=== PATIENT | male | born 1975 | race Caucasian/White ===

== ENCOUNTER 2018-02-05 14:20 | Outpatient (REF) | payer SELFPAY ==
[2018-02-05 19:52] LABS: ALT 38 U/L (12-78); AST 21 U/L (15-37); Albumin 4.2 g/dL (3.4-5.0); Alkaline Phosphatase 86 U/L (46-116); Anion Gap 8.4 mmol/L (3-11); BUN 12 mg/dL (7-18); Bilirubin, Total 0.6 mg/dL (0.2-1.0); CO2 28.6 mmol/L (21.0-32.0); CREATININE 0.97 mg/dL (0.70-1.30); Calcium 9.2 mg/dL (8.5-10.1); Chloride 100 mmol/L (98-107); Cholesterol 282 mg/dL (50-200); Glucose 110 mg/dL (70-100); HDL Cholesterol 51 mg/dL (40-60); LDL CHOLESTEROL 166 mg/dL (<100); Potassium 4.1 mmol/L (3.5-5.1); Sodium 137 mmol/L (136-145); TSH 1.94 uIU/mL (0.358-3.74); Total Protein 7.4 g/dL (6.4-8.2); Triglyceride 466 mg/dL (30-150)
[2018-02-05 19:59] LABS: COMMENT (LAB VIEW ONLY) 135.74 mg/dL
[2018-02-05 20:32] LABS: HCT 49.4 % (40.0-50.0); Mean Corp. HGB Concentration 34.4 g/dL (32.0-36.0); Mean Corpuscular Hemoglobin 30.3 pg (27.0-33.0); Mean Corpuscular Volume 88.1 fL (80-95); Mean Platelet Volume 10.1 fL (8.0-11.0); Platelet Count 231 x1000/uL (130-400); RBC 5.61 m/cumm (4.50-6.00); RBC Distribution Width 12.5 % (11.8-14.1)
== END 2018-02-05 14:40 ==
LOC: NCHCN 14:20
PROVIDERS: PCP Physician Assistant Medical; Visit Provider Physician Assistant Medical
DX: I10 Essential (primary) hypertension (principal)
CPT/HCPCS: 80053; 80061; 83721; 85027; 82043; 82570; 84443

== ENCOUNTER 2019-11-03 19:13 | Emergency (ER) | payer MEDICAID, SELFPAY ==
[2019-11-03 19:27] VITALS: BP 167/105; PULSE 102; RESP 16; TEMP 36.6; O2SAT 98
--- NOTE | 2019-11-03 19:53 | ED.GENADUL_ITS ---
Discharge Plan Disposition Patient Disposition: HOME Condition: Good Discharge Details Chief Complaint: Nk/Back Pain Clinical Impression: Hematoma Primary Care Provider: Milli Wilson ED Provider: Aracelis Gandhi Home Meds and New Rx's Prescriptions: Continued amlodipine 10 mg Tablet 5 mg PO DAILY RF: 0 lisinopril 40 mg Tablet 40 mg PO DAILY RF: 0 Discharge Instructions Instructions: Hematoma (ED) Additional Instructions: Your exam is most consistent with a hematoma. There is no indications at this point for infection. Please apply warm compresses to help with swelling. Please continue to monitor for signs of infection bleeding redness, warmth, drainage, increased pain, fever/chills. If you develop these or other new/w orsening symptoms please seek care urgently once again. Please follow-up with primary care in the next few weeks for reevaluation. Referrals: Milli Wilson [Primary Care Provider] - Discharge Data Discharge Date/Time-TO BE ENTERED AT DEPARTURE: 11/03/19 20:30 Medical Decision Making Patient is a pleasant 44-year-old gentleman presenting today with chief complaint of swelling on the left lower side of his back. He reports that approximately 2 weeks ago he slipped and fell striking this area again some works at his home. States that 1 week later he was seen at [facility] for evaluation of area of swelling. States that it was quite ecchymotic. The ecchymosis is since been subsiding. He did recommend at that time that his findings are most consistent with hematoma and advised that this would self resolve. Patient is concerned that this is not resolved over the past week. He denies any pain. No fevers chills there is no erythema. He did have abrasions over the area but feels these are healing well. On exam, patient resting comfortably. He has no midline tenderness, full range of motion of his back. No tenderness with palpation of the area of swelling. Swelling is 9 x 9.5 cm. No evidence to suggest infection. Abrasions appear to be healing well. Ecchymosis is now quite faint and yellowed in your gluteal cleft. Area was evaluated by myself as well as Dr. Vazquez for fluid collection using ultrasound. Gelatinous substance consistent with hematoma was evident but no suggestion of acute abscess on physical exam or imaging. Patient I discussed treatment options. Encourage warm compresses. Encourage close monitoring of the areas. In particular, we discussed signs symptoms of infection when to seek care urgently once again. He will follow-up with primary care. All his questions and concerns were addressed and he is in agreement this plan. HPI General Mode of arrival: ambulatory . Date/Time Provider Initiated Documentation: 11/03/19 19:53 . Limitations to Documentation: no limitations . Information obtained by: patient and RN notes reviewed . History of Present Illness 44 year old M presents to the emergency department with the chief c omplaint of lump on back, described as mild (denies any pain at this time), and is localized to the back. Patient reports no radiation. Patient started experiencing this week(s) (2) and it has been now resolved. No relieving factors improve symptom(s), No exacerbating factors reported . Patient notes no other symptoms.. Patient did receive the following treatments prior to arrival, none Related Data Home Medications Medication Instructions Recorded Confirmed amlodipine 5 mg PO DAILY 11/03/19 11/03/19 lisinopril 40 mg PO DAILY 11/03/19 11/03/19 Allergies Allergy/AdvReac Type Severity Reaction Status Date / Time No Known Allergies Allergy Unverified 11/03/19 19:30 General Stated Complaint: Nk/Back Pain STEPHANIE: 3 Review of Systems Constitutional Constitutional: Reports as per HPI, Denies chills, Denies fever(s), Denies frequent falls and Denies weakness Musculoskeletal Musculoskeletal: Reports as per HPI, Denies abnormal gait and Denies numbness Integumentary/Breasts Skin/Breast: Reports as per HPI and Denies rash Neurologic Neurologic: Reports as per HPI, Denies abnormal gait, Denies frequent falls, Denies lack of coordination, Denies localized weakness, Denies numbness, Denies radicular pain, Denies sensory deficit, Denies paresthesias and Denies weakness [facility] Social History Smoking/Tobacco Use Status: Never Alcohol Intake: current Alcohol Intake frequency: 0-2 drinks per day Drug use: Never Substance use type: does not use Do you feel safe at home: Yes Do you feel safe in your relationship?: Yes Exam Const General: cooperative, healthy appearing, comfortable, no acute distress and well developed Nutritional Appearance: average body habitus and well nourished Orientation: alert and awake Resp Effort & Inspection: normal respiratory effort, able to speak in complete sentences and no respiratory distress Cardio Rate: regular rate Rhythm: regular rhythm Back/Spine/Pelvis Back/spine/pelvis image: 1. Focal area of swelling, fluctuant, measures 9 x 9.5cm. Old, well healing abrasions overlying. No erythema, warmth, pain. Ecchymosis over sacrum, appears yellowed and old. Full ROM, no midline tenderness, no sensory deficit noted Neuro General: patient alert and patient awake Cognition: normal cognition Speech: speech normal Gait: normal gait Sensory Exam: no sensory deficits noted Psych Appearance: grossly normal and well kempt Mental Status: mental status grossly normal Speech and Movement: speech and movement normal Course Vital Signs Vital signs: Vital Signs Temperature 36.6 C 11/03/19 19:27 Pulse 102 H 11/03/19 19:27 Respiratory Rate 16 11/03/19 19:27 Blood Pressure 167/105 H 11/03/19 19:27 Pulse Oximetry 98 11/03/19 19:27 Temperature 36.6 C 11/03/19 19:27 Temperature Source Skin 11/03/19 19:27 Pulse 102 H 11/03/19 19:27 Respiratory Rate 16 11/03/19 19:27 Respiratory Effort 11/03/19 19:32 Blood Pressure 167/105 H 11/03/19 19:27 Blood Pressure Position Sitting 11/03/19 19:27 Pulse Oximetry 98 11/03/19 19:27 Oxygen Delivery Method Room Air 11/03/19 19:27 Oxygen Flow Rate 0 11/03/19 19:27 Pain Level 0 11/03/19 19:27
--- NOTE | 2019-11-03 20:38 | NUR.NOTE ---
left lower back hematoma measures 9cmx9.5cm
== END 2019-11-03 20:30 | disposition home or self-care (01) ==
PROVIDERS: Emergency Provider Physician Assistant; PCP Physician Assistant
DX: S30.0XXA Contusion of lower back and pelvis, initial encounter (principal); W01.198A Fall on same level from slipping, tripping and stumbling with subsequent striking against other object, initial encounter
CPT/HCPCS: 99281

== ENCOUNTER 2020-09-23 23:58 | Outpatient (REF) | payer MEDICAID, SELFPAY ==
[2020-09-23 18:50] LABS: CREATININE 0.9 mg/dL (0.70-1.30); LDL CHOLESTEROL 129 mg/dL (<100)
== END 2020-09-23 23:59 | disposition home or self-care (01) ==
LOC: NCHCN 23:58
PROVIDERS: PCP Physician Assistant; Visit Provider Physician Assistant
DX: I10 Essential (primary) hypertension (principal); E78.5 Hyperlipidemia, unspecified
CPT/HCPCS: 83721; 82565

== ENCOUNTER 2020-10-21 01:27 | Outpatient (CLI) | payer MEDICAID, SELFPAY ==
--- NOTE | 2020-10-21 | DI.CT_ITS ---
Exam(s) CT LOWER EXTREMITY LT WO EXAM: CT LOWER EXTREMITY LT WO CLINICAL HISTORY: MAXINE BAH SPRAIN, S93.038S. TECHNIQUE: Imaging Protocol: Axial computed tomography images with coronal and sagittal reformatted images were created and reviewed. CONTRAST MATERIAL: Noncontrast COMPARISON: No exams were available for comparison FINDINGS: Bones: There is a tiny fracture fragment seen from the dorsal lateral corner of the 1st cuneiform. T he base of the 1st metatarsal is intact. There is a nondisplaced comminuted fracture of the base of the 2nd metatarsal. There is extension to the articular surface but no separation. The 3rd metatars al there of shows a tiny fracture at the plantar base. The bases of the 4th and 5th metatarsals appe ar intact. Bony alignment is satisfactory. The mid-foot is well maintained. No cellulitic or osteomy elitic changes are identified. There are mild degenerative changes of the 1st MTP joint.. No lytic or sclerotic lesions are identified. Soft Tissues: There is edema at the greatest at the dorsal metatarsal region. IMPRESSION: Nondisplaced fractures at the bases of the 2nd and 3rd metatarsals. Tiny fracture fragment from of t he 1st cuneiform. Normal alignment at the Lisfranc joints. RADIATION DOSE DELIVERED: 161.52mGy.cm Total DLP DATA REPOSITORY: All CT scans at this facility are submitted to the National Radiology Data Registry (NRDR) Dose Index Registry (DIR) with the [employer] (ACR). RADIATION OPTIMIZATION: All CT scans at this facility use at least one of these dose optimization te chniques: automated exposure control; mA and/or kV adjustment per patient size (includes targeted exa ms where dose is matched to clinical indication); or iterative reconstruction.
== END 2020-10-21 01:47 ==
PROVIDERS: PCP Physician Assistant
DX: S92.325A Nondisplaced fracture of second metatarsal bone, left foot, initial encounter for closed fracture (principal); S92.335A Nondisplaced fracture of third metatarsal bone, left foot, initial encounter for closed fracture; S92.222A Displaced fracture of lateral cuneiform of left foot, initial encounter for closed fracture; X58.XXXA Exposure to other specified factors, initial encounter
CPT/HCPCS: 73700

== ENCOUNTER 2021-11-24 10:11 | Outpatient (REF) | payer MEDICAID, SELFPAY ==
[2021-11-24 20:34] LABS: Anion Gap 10.4 mmol/L (3-11); BUN 16 mg/dL (7-18); CO2 25.6 mmol/L (21.0-32.0); CREATININE 0.8 mg/dL (0.70-1.30); Calcium 8.5 mg/dL (8.5-10.1); Chloride 100 mmol/L (98-107); Glucose 124 mg/dL (74-106); Potassium 4.1 mmol/L (3.5-5.1); Sodium 136 mmol/L (136-145)
[2021-11-24 21:30] LABS: Hemoglobin A1C 5.5 % (<5.7)
== END 2021-11-24 10:12 | disposition home or self-care (01) ==
LOC: NCHCN 10:11
PROVIDERS: PCP Physician Assistant; Visit Provider Physician Assistant
DX: I10 Essential (primary) hypertension (principal); R73.9 Hyperglycemia, unspecified
CPT/HCPCS: 80048; 83036

== ENCOUNTER 2022-02-26 09:38 | Emergency (ER) | payer MEDICAID, SELFPAY ==
[2022-02-26 09:42] VITALS: BP 147/107; PULSE 120; RESP 20; TEMP 36.4; O2SAT 98
--- NOTE | 2022-02-26 09:45 | DI.CT_ITS ---
Exam(s) CT ABDOMEN PELVIS W EXAM: CT ABDOMEN PELVIS W CLINICAL HISTORY: left lower abd pain. TECHNIQUE: Imaging Protocol: Axial computed tomography images with coronal and sagittal reformatted images were created and reviewed CONTRAST MATERIAL: Intravenous: Omnipaque 100cc Oral: None COMPARISON: No exams were available for comparison FINDINGS: VISUALIZED LUNG BASES: No nodules nor pleural effusions evident. ABDOMEN: There is no ascites. LIVER: There are no focal hepatic lesions evident . GALLBLADDER/BILIARY: No obvious gallbladder pathology. CBD is not dilated. PANCREAS: No evidence of pancreatic mass nor dilatation of the pancreatic duct. SPLEEN: Spleen is not enlarged. No obvious intrasplenic lesions. Splenic and portal veins are paten t. ADRENALS: There are no significant adrenal masses. KIDNEYS:There is a 1 cm benign cyst in the anterior cortex left kidney. Does not require further wor kup. No solid renal masses. No calculi nor hydronephrosis.. ABDOMINAL AORTA: Abdominal aorta is not enlarged. LYMPH NODES:There is no retroperitoneal nor paraaortic adenopathy. ABDOMINAL WALL: No evidence of significant anterior abdominal wall nor inguinal hernia. GI: There is evidence of acute diverticulitis with bowel wall thickening and prominent surrounding in flammatory change in the descending-left colon. Also small amount of adjacent fluid as well as some fluid in the dependent aspect of the pelvis but no distinct abscess at this time. There are also div erticula in the sigmoid but no evidence of diverticulitis in sigmoid. PELVIS: GI: No evidence of appendicitis. LYMPH NODES: There is no intrapelvic nor inguinal adenopathy. REPRODUCTIVE: Prostate not enlarged. URINARY BLADDER: Uniform thickening of the urinary bladder wall. OSSEOUS: No significant osseous lesions. No fractures. IMPRESSION: 1. Findings are consistent with severe acute diverticulitis in the mid descending-left colon. There is some surrounding inflammatory change and fluid as well as some fluid in the dependent aspect of th e pelvis but there is no distinct abscess at this time. Close follow-up is recommended. 2. Other findings as above. 3. 4. RADIATION DOSE DELIVERED: 958.76mGy.cm Total DLP DATA REPOSITORY: All CT scans at this facility are submitted to the National Radiology Data Registry (NRDR) Dose Index Registry (DIR) with the [employer] (ACR). RADIATION OPTIMIZATION: All CT scans at this facility use at least one of these dose optimization te chniques: automated exposure control; mA and/or kV adjustment per patient size (includes targeted exa ms where dose is matched to clinical indication); or iterative reconstruction.
--- NOTE | 2022-02-26 09:45 | RT.EKG_ITS ---
APPROVED REPORT Exam: Resting ECG Reason for Exam: tachy Patient Location: E HR:110 bpm ECG Measurements Heart Rate 110 AXIS SD 136 P 27 QRSd 93 QRS 51 QT 317 T 11 QTc 428 Conclusion Sinus tachycardia...rate> 99
[2022-02-26 10:03] LABS: Abs Immature Grans 0.05 10^3/uL (0.0-0.06); Absolute Eosinophil Count 0.15 10^3/uL (0.0-0.7); Absolute Monocyte Count 1.52 10^3/uL (0.1-0.8); Basophils % 0.4; Eosinophils % 0.9; HCT 45.7 % (40.0-50.0); HGB 15.9 g/dL (13.5-17.5); Immature Grans % 0.3; Lactate 1.1 mmol/L (0.6-1.4); Lymphocytes % 11.7; MCH 30.8 pg (27.0-33.0); MCHC 34.8 % (32.0-36.0); MCV 88 fL (80-95); MPV 9.3 fL (8.0-11.0); Monocytes % 9.4; Neutrophils % 77.3; Platelet Count 248 10^3/uL (130-400); RBC 5.17 10^6/uL (4.36-5.78); RDW 11.6 % (11.8-14.1); RDW-SD 37.2 fL; WBC 16.22 10^3/uL (4.4-10.8)
[2022-02-26 10:06] LABS: Absolute Basophil Count 0.06 10^3/uL (0.0-0.2); Absolute Neutrophil Count 12.54 10^3/uL (1.2-6.7)
[2022-02-26] MEDS: Normal Saline 1,000 ML 1000 ML IV (10:08)
--- NOTE | 2022-02-26 10:08 | ED.GENADUL_ITS ---
Discharge Plan Disposition Patient Disposition: HOME Condition: Stable Discharge Details Clinical Impression: Diverticulitis Primary Care Provider: Milli Wilson ED Provider: Fred Cárdenas Home Meds and New Rx's Prescriptions: New ciprofloxacin HCl 500 mg tablet 500 mg PO BID 7 Days Qty: 14 0RF metronidazole 500 mg tablet 500 mg PO TID 7 Days Qty: 21 0RF Continued amlodipine 10 mg Tablet 5 mg PO DAILY lisinopril 40 mg Tablet 40 mg PO DAILY Discharge Instructions Instructions: Diverticulitis (ED), Diverticulitis Diet (ED) Additional Instructions: As discussed please avoid alcohol while on the antibiotics and for 3 days afte rwards. Otherwise you may continue the clear liquid diet for the next 24 hours and slowly advance your diet as tolerated. Please follow-up with your primary care provider for reassessment or return to the emergency department if you develop any new or significant worsening of Referrals: Milli Wilson [Primary Care Provider] - 5 days (For reassessment of your abdominal pain and to ensure that you are improving) Discharge Data Discharge Date/Time-TO BE ENTERED AT DEPARTURE: 02/26/22 11:42 Medical Decision Making Patient presenting to the emergency department for chief complaint of abdominal pain. Patient reports on Sunday he began having dull left lower quadrant abdominal pain. Over the past couple days it is worsening. He was attempting to get into his primary care provider but stated the pain increased enough to where he wanted to be seen sooner. Patient denies fever chills, vomiting, uri nary cardiac or respiratory symptoms. He does state significant decrease in appetite and that he has been attempting clear liquids but has only noticed worsening symptoms. Physical exam shows significant tenderness to palpation of the left lower quadrant otherwise unremarkable exam. Patient is tachycardic and slightly hypertensive which he states he is anxious. We will plan on checking labs EKG and CT of the abdomen. Pending results will give fluids, antiemetics, and pain medication if patient desires. Please see physician interpretation for full interpretation but upon my review it appears that patient is in sinus tachycardia with no acute ischemic findings noted. We will continue to monitor. Review of patient's labs show a significant elevated WBC of 16.22 with neutrophils of 12.5 and mono sites of 1.5 to, CMP is unremarkable except for slightly elevated glucose of 120, negative troponin, negative lipase, normal liver function test. Review of CT imaging and radiologist interpretation shows diverticulitis of the descending colon. No mention of abscess or free perforation. We will start patient on metronidazole and Cipro. Patient was informed to not drink alcohol while on antibiotics and for 3 days afterwards. Patient placed upon referral to primary care for follow-up to ensure that he is improving fine. Did discuss return and follow-up precautions. After discussion of diagnosis and plan of care patient has no further needs, questions, or concerns and states clear understanding to return to the emergency department for any worsening symptoms. This documentation was generated using [employer] system, please disregard any oddities of phrase or misspellings. Imaging Data Radiologic Study: Attestation: I personally reviewed and interpreted this imaging study as follows: Imaging: CT Scan Radiologist's impression: FINDINGS: Liver: Normal. No mass. Gallbladder and bile ducts: Normal. No calcified stones. No ductal dilation. Pancreas: Normal. No ductal dilation. Spleen: Normal. No splenomegaly. Adrenal glands: Normal. No mass. Kidneys and ureters: Subcentimeter cyst in the left kidney. No hydronephrosis. Stomach and bowel: The stomach and small bowel are normal.There is diverticular disease with wall thickening and surrounding inflammatory change in the descending colon, consistent with acute diverticulitis. Appendix: No evidence of appendicitis. A normal appendix is identified. Intraperitoneal space: Unremarkable. No free air. No significant fluid collection. Vasculature: Unremarkable. No abdominal aortic aneurysm. Lymph nodes: Unremarkable. No enlarged lymph nodes. Urinary bladder: Unremarkable as visualized. Reproductive: Unremarkable as visualized. Bones/joints: Unremarkable. No acute fracture. Soft tissues: There is a small fat-containing umbilical hernia. IMPRESSION: Acute diverticulitis of the mid descending colon. Lab Data Lab results reviewed: Yes I reviewed the patient's lab results. HPI General Mode of arrival: ambulatory . Date/Time Provider Initiated Documentation: 02/26/22 09:39 . Limitations to Documentation: no limitations . Information obtained by: patient, RN notes reviewed and old records reviewed . History of Present Illness 47 year old M presents to the emergency department with the chief complaint of Abdominal pain, described as mild and moderate, Quality is described as aching, and is localized to the abdomen. Patient reports no radiation. Patient started experiencing this day(s) (3) and it has been constant. No relieving factors improve symptom(s), No exacerbating factors reported . Patient notes no other symptoms.. Patient did receive the following treatments prior to arrival, none Related Data Home Medications Medication Instructions Recorded Confirmed amlodipine 10 mg tablet 5 mg PO DAILY 11/03/19 02/26/22 lisinopril 40 mg tablet 40 mg PO DAILY 11/03/19 02/26/22 ciprofloxacin HCl 500 mg tablet 500 mg PO BID 7 days #14 tabs 02/26/22 metronidazole 500 mg tablet 500 mg PO TID 7 days #21 tabs 02/26/22 Previous Rx's Medication Instructions Recorded ciprofloxacin HCl 500 mg tablet 500 mg PO BID 7 days #14 tabs 02/26/22 metronidazole 500 mg tablet 500 mg PO TID 7 days #21 tabs 02/26/22 Allergies Allergy/AdvReac Type Severity Reaction Status Date / Time No Known Allergies Allergy Unverified 11/03/19 19:30 General Stated Complaint: Abd Prob STEPHANIE: 3 Review of Systems Constitutional Constitutional: Denies chills, Denies fever(s) and Reports poor appetite Cardiovascular Cardiovascular: Denies chest pain and Denies dyspnea Respiratory Respiratory: Denies cough and Denies dyspnea Gastrointestinal Gastrointestinal: Reports as per HPI, Reports abdominal pain, Denies melena, Denies change in bowel habits, Denies constipation, Reports diarrhea, Denies nausea and Denies vomiting Genitourinary Genitourinary: Reports system reviewed and no additional complaints, except as documented Musculoskeletal Musculoskeletal: Denies back pain Integumentary/Breasts Skin/Breast: Denies rash PFSH All Active Problems (Updated 02/26/22 @ 11:31 by Fred Cárdenas NP) Diverticulitis (Chronic) Hypertension (Chronic) Medical History (Updated 02/26/22 @ 11:31 by Fred Cárdenas NP) Diverticulitis Social History Smoking/Tobacco Use Status: Never Smoking risk assessment performed?: Yes Alcohol Intake: current Alcohol Intake frequency: 3 or more drinks per day Drug use: Occasionally Substance use type: marijuana Do you feel safe at home: Yes Do you feel safe in your relationship?: Yes Exam Const General: cooperative Orientation: alert, awake and oriented x3 Resp Effort & Inspection: normal respiratory effort and able to speak in complete sentences Auscultation: clear to auscultation bilaterally Cardio Rate: regular rate Rhythm: regular rhythm Heart Sounds: S1 normal and S2 normal GI Inspection: normal to inspection Palpation: soft, no hepatosplenomegaly, not firm, no guarding, no masses, no pulsatile masses, not rigid, no splenomegaly and tender in the LLQ; Haney's sign negative and Rovsing's sign negative Auscultation: normal bowel sounds Back/Spine/Pelvis Back: no CVA tenderness Neuro General: patient alert, patient awake, patient oriented x3, gait normal and moves all extremities Course Vital Signs Vital signs: Vital Signs Temperature 36.4 C L 02/26/22 09:42 Pulse 120 H 02/26/22 09:42 Respiratory Rate 20 02/26/22 09:42 Blood Pressure 147/107 H 02/26/22 09:42 Pulse Oximetry 98 02/26/22 09:42 Temperature 36.4 C L 02/26/22 09:42 Pulse 120 H 02/26/22 09:42 Respiratory Rate 20 02/26/22 09:42 Blood Pressure 147/107 H 02/26/22 09:42 Blood Pressure Position Sitting 02/26/22 09:42 Pulse Oximetry 98 02/26/22 09:42 Oxygen Delivery Method Room Air 02/26/22 09:42 Oxygen Flow Rate 0 02/26/22 09:42 Pain Level 5 02/26/22 09:42 Lab/Test Results Lab/Test Results: Laboratory Tests Range/Units 02/26/22 09:57 VBG Lactate (0.6-1.4) mmol/L 1.1 PAWSS Have you Been Recently Intoxicated or Drunk Within the Last 30 days?: Yes Have you Ever Experienced Previous Episodes of Alcohol Withdrawal?: No Have you ever Experienced Withdrawal Seizures?: No Have you ever Experienced Delirium Tremens(DT)s?: No Have you ever undergone Alcohol Rehabilitation Treatment (i.e, inpt ot outpatient treatment programs)?: No Have you ever Experienced Blackouts?: No Have you ever Combined Alcohol with other Downers within the last 90 days?: No Have you ever Combined Alcohol with any other Substance of Abuse during the last 90 days?: No Positive Blood Alcohol level on Presentation? [PCS.BAL]: No Evidence of Increased Autonomic Activity (i.e. HR>120, tremor, sweating, agitation, nausea)?: No Result: 1
[2022-02-26] MEDS: Omnipaque 350 MG/ML 100 ML BTL IJ (10:27)
[2022-02-26] MEDS: Normal Saline - Diluent 50 ML VIAL IV (10:28)
[2022-02-26 10:31] LABS: Diff Comment Agrees w/ Instrument; RBC Morphology Normal
[2022-02-26 10:33] LABS: ALT 30 U/L (16-63); AST 22 U/L (15-37); Albumin 4.1 g/dL (3.4-5.0); Alkaline Phosphatase 103 U/L (46-116); Anion Gap 9.8 mmol/L (3-11); BUN 10 mg/dL (7-18); Bilirubin, Total 0.8 mg/dL (0.2-1.0); CO2 27.2 mmol/L (21.0-32.0); CREATININE 1.1 mg/dL (0.70-1.30); Calcium 8.7 mg/dL (8.5-10.1); Chloride 99 mmol/L (98-107); Estimated GFR 82.81 (mL/min/1.73m2); Glucose 120 mg/dL (74-106); Lipase 110 U/L (73-393); Magnesium 1.8 mg/dL (1.8-2.4); Potassium 3.7 mmol/L (3.5-5.1); Sodium 136 mmol/L (136-145); Troponin I < 50 ng/L (<or=60)
--- NOTE | 2022-02-26 10:51 | DI.VRAD_ITS ---
PROCEDURE INFORMATION: Exam: CT Abdomen And Pelvis With Contrast Exam date and time: 02/26/2022 10:24 AM Age: 47 years old Clinical indication: Other: Left lower abd pain TECHNIQUE: Imaging protocol: Computed tomography of the abdomen and pelvis with contrast. Radiation optimization: All CT scans at this facility use at least one of these dose optimization techniques: automated exposure control; mA and/or kV adjustment per patient size (includes targeted exams where dose is matched to clinical indication); or iterative reconstruction. Contrast material: OMNIPAQUE 350; Contrast volume: 100 ml; Contrast route: INTRAVENOUS (IV); COMPARISON: CT LOWER EXTREMITY LT WO 10/21/2020 1:08 PM FINDINGS: Liver: Normal. No mass. Gallbladder and bile ducts: Normal. No calcified stones. No ductal dilation. Pancreas: Normal. No ductal dilation. Spleen: Normal. No splenomegaly. Adrenal glands: Normal. No mass. Kidneys and ureters: Subcentimeter cyst in the left kidney. No hydronephrosis. Stomach and bowel: The stomach and small bowel are normal.There is diverticular disease with wall thickening and surrounding inflammatory change in the descending colon, consistent with acute diverticulitis. Appendix: No evidence of appendicitis. A normal appendix is identified. Intraperitoneal space: Unremarkable. No free air. No significant fluid collection. Vasculature: Unremarkable. No abdominal aortic aneurysm. Lymph nodes: Unremarkable. No enlarged lymph nodes. Urinary bladder: Unremarkable as visualized. Reproductive: Unremarkable as visualized. Bones/joints: Unremarkable. No acute fracture. Soft tissues: There is a small fat-containing umbilical hernia. IMPRESSION: Acute diverticulitis of the mid descending colon. Dictated and Authenticated by: Jo-Ann Calderon MD. Ordering:RIRI Ibarra MD
[2022-02-26] MEDS: Ciprofloxacin 500 MG TAB PO (11:30)
[2022-02-26] MEDS: metroNIDAZOLE 500 MG TAB PO (11:30)
[2022-02-26 11:34] VITALS: BP 142/88; PULSE 75; RESP 18; TEMP 37; O2SAT 99
--- NOTE | 2022-02-26 11:50 | NUR.NOTE ---
Nursing Note: Referral faxed to PCP [facility] for diverticulitis in 3 to 5 days.
== END 2022-02-26 11:42 | disposition home or self-care (01) ==
PROVIDERS: Emergency Provider Nurse Practitioner Family; PCP Physician Assistant
DX: K57.32 Diverticulitis of large intestine without perforation or abscess without bleeding (principal); R00.0 Tachycardia, unspecified; R73.9 Hyperglycemia, unspecified; D72.829 Elevated white blood cell count, unspecified
CPT/HCPCS: 80053; 83690; 93005; 96361; 96374; 96375; 99284; 74177; 83605; 83735; 84484; 85025; 93010; J3490

== ENCOUNTER 2023-02-27 15:04 | Outpatient (REF) | payer MEDICAID, SELFPAY ==
[2023-02-27 19:57] LABS: ALT 31 U/L (16-63); AST 24 U/L (15-37); Albumin 3.8 g/dL (3.4-5.0); Alkaline Phosphatase 78 U/L (46-116); Anion Gap 9.5 mmol/L (3-11); BUN 15 mg/dL (7-18); Bilirubin, Total 0.3 mg/dL (0.2-1.0); CO2 24.5 mmol/L (21.0-32.0); CREATININE 0.9 mg/dL (0.70-1.30); Calcium 9.1 mg/dL (8.5-10.1); Chloride 103 mmol/L (98-107); Glucose 97 mg/dL (74-106); LDL CHOLESTEROL 131 mg/dL (<100); Potassium 4.3 mmol/L (3.5-5.1); Sodium 137 mmol/L (136-145); Total Protein 7.3 g/dL (6.4-8.2)
== END 2023-02-27 15:05 | disposition home or self-care (01) ==
LOC: NCHCN 15:04
PROVIDERS: PCP Physician Assistant; Visit Provider Physician Assistant
DX: I10 Essential (primary) hypertension (principal); E78.5 Hyperlipidemia, unspecified
CPT/HCPCS: 80053; 83721

== ENCOUNTER 2024-04-17 11:53 | Outpatient (REF) | payer MEDICAID, SELFPAY ==
[2024-04-17 19:50] LABS: ALT 25 U/L (16-63); AST 20 U/L (15-37); Albumin 4.1 g/dL (3.4-5.0); Alkaline Phosphatase 80 U/L (46-116); BUN 11 mg/dL (7-18); Bilirubin, Total 0.29 mg/dL (0.2-1.0); CREATININE 0.8 mg/dL (0.70-1.30); Calcium 8.9 mg/dL (8.5-10.1); Chloride 103 mmol/L (98-107); Cholesterol 295 mg/dL (<200); Estimated GFR 107.82 (mL/min/1.73m2); Glucose 99 mg/dL (74-106); HDL Cholesterol 54 mg/dL (40-60); Potassium 4.2 mmol/L (3.5-5.1); Sodium 139 mmol/L (136-145); Total Protein 7.4 g/dL (6.4-8.2); Triglyceride 495 mg/dL (<150)
[2024-04-17 20:31] LABS: LDL CHOLESTEROL 156 mg/dL (<100)
== END 2024-04-17 11:54 | disposition home or self-care (01) ==
LOC: NCHCN 11:53
PROVIDERS: PCP Physician Assistant; Visit Provider Physician Assistant
DX: E78.5 Hyperlipidemia, unspecified (principal)
CPT/HCPCS: 80053; 80061; 83721

== ENCOUNTER 2024-11-19 18:03 | Outpatient (REF) | payer MEDICAID, SELFPAY ==
[2024-11-19 20:25] LABS: ESR 5 mm/hr (0-15)
[2024-11-19 20:26] LABS: Abs Immature Grans 0.04 10^3/uL (0.0-0.06); HCT 43.5 % (40.0-50.0); HGB 15.3 g/dL (13.5-17.5); Immature Grans % 0.6 %; MCH 30.8 pg (27.0-33.0); MCHC 35.2 % (32.0-36.0); MCV 88 fL (80-95); MPV 9.7 fL (8.0-11.0); Platelet Count 245 10^3/uL (130-400); RBC 4.96 10^6/uL (4.36-5.78); RDW 11.9 % (11.8-14.1); RDW-SD 38.4 fL; WBC 7.21 10^3/uL (4.4-10.8)
[2024-11-19 20:44] LABS: Anion Gap 10.5 mmol/L (3-11); BUN 15 mg/dL (7-18); CO2 27.5 mmol/L (21.0-32.0); Calcium 8.8 mg/dL (8.5-10.1); Chloride 99 mmol/L (98-107); Estimated GFR 91.69 (mL/min/1.73m2); Glucose 125 mg/dL (74-106); Potassium 4.1 mmol/L (3.5-5.1); Sodium 137 mmol/L (136-145)
[2024-11-19 20:45] LABS: C-Reactive Protein < 0.50 mg/dL (<or=0.5)
[2024-11-21 10:26] LABS: Lyme Ab w Rflx to Lyme Confirm Negative (Negative)
[2024-11-23 19:08] LABS: B. miyamotoi PCR Negative (Negative); Babesia divergens/MO-1 Negative (Negative); Ehrlichia muris eauclairensis Negative (Negative)
== END 2024-11-19 18:04 | disposition home or self-care (01) ==
LOC: NCHCN 18:03
PROVIDERS: PCP Physician Assistant; Visit Provider Physician Assistant
DX: H57.89 Other specified disorders of eye and adnexa (principal); W57.XXXA Bitten or stung by nonvenomous insect and other nonvenomous arthropods, initial encounter
CPT/HCPCS: 80048; 85652; 87798; 85025; 86140; 86618

== ENCOUNTER 2024-12-05 11:51 | Outpatient (REF) | payer MEDICAID, SELFPAY ==
[2024-12-05 19:31] LABS: TSH (W/Ref FT4) 1.42 uIU/mL (0.36-3.74)
== END 2024-12-05 11:52 | disposition home or self-care (01) ==
LOC: NCHCN 11:51
PROVIDERS: PCP Physician Assistant; Visit Provider Physician Assistant
DX: H53.8 Other visual disturbances (principal)
CPT/HCPCS: 84443; 86038